=== PATIENT | male | born 1975 | race Caucasian/White ===

== ENCOUNTER 2017-08-24 16:36 | Emergency (ER) | payer SELFPAY ==
--- NOTE | 2017-08-24 17:10 | NUR ---
CALLED IN [place]- NO ANSWER
--- NOTE | 2017-08-24 17:20 | NUR ---
CALLED IN [place]- NO ANSWER
--- NOTE | 2017-08-24 17:30 | NUR ---
CALLED IN [place]- NO ANSWER
== END 2017-08-24 17:32 | disposition left against medical advice (07) ==
LOC: ER 16:39
DX: Z53.21 Procedure and treatment not carried out due to patient leaving prior to being seen by health care provider (principal)